=== PATIENT | female | born 1990 | race Caucasian/White ===

== ENCOUNTER 2017-12-03 22:45 | Emergency (ER) | payer OTHER ==
[2017-12-03] MEDS ORDERED: NS 0.9% 1000 ML* 1,000 ML IV ONE (22:55)
[2017-12-03] MEDS ORDERED: Ondansetron ODT TAB* 4 MG PO ONE (22:55)
[2017-12-03] MEDS ORDERED: Ondansetron INJ* 2 MG/ML VIAL ONE (22:58)
[2017-12-03 23:10] LABS: Hematocrit 34 % (35-47); Hemoglobin 11.4 g/dl (12.0-16.0); Mean Corpuscular HGB Conc 34 g/dl (31-36); Mean Corpuscular Hemoglobin 30 pg (27-31); Mean Corpuscular Volume 91 fL (80-97); Mean Platelet Volume 10.1 um3 (7.4-10.4); Platelet Count 157 10^3/ul (150-450); Red Blood Count 3.75 10^6/ul (4.00-5.40); Red Cell Distribution Width 12 % (10.5-15); White Blood Count 9.7 10^3/ul (3.5-10.8)
[2017-12-03] MEDS ORDERED: Ondansetron INJ* 2 MG/ML VIAL IV ONE (23:27)
[2017-12-03 23:28] LABS: EGFR Non-African American 98.7 (>60)
[2017-12-03 23:36] LABS: ABS Basophils 0.1 10^3/ul (0-0.2); ABS Neutrophils 2.5 10^3/ul (1.5-7.7); ABS Neutrophils 3.1 10^3/ul (1.5-7.7); Monocytes % 3 % (0-7)
[2017-12-04] MEDS ORDERED: Potassium Chlor TAB* 20 MEQ TAB.ER PO ONE (00:03)
[2017-12-04] MEDS ORDERED: NS 0.9% 1000 ML* 1,000 ML IV ONE (00:03)
[2017-12-04 01:17] LABS: Urine Red Blood Cell Trace(0-2/hpf) (Absent); Urine White Blood Cell Trace(0-5/hpf) (Absent)
--- NOTE | 2017-12-04 01:19 | ED ---
Syncope/Near Syncope - HPI Summary HPI Summary: Complains of sudden onset lightheadedness, N/V, weakness, 2 hours, with syncopal episode 45 minutes ago, lasting around 1 minute. Syncopal episode was observed, patient was helped to the floor, denies injury from fall. Patient alert and oriented here in the ED. Patient was [place] , drinking beer. Denies fever, cough, sore throat, CP, SOB, abdominal pain, change in urine, change in BM, vaginal symptoms. Medical history is none. States two prior episodes of syncope in her life from low blood sugar. - History Of Current Complaint Chief Complaint: EDSyncope Time Seen by Provider: 12/03/17 22:53 Hx Obtained From: Patient, Family/Bacon Slicer Onset/Duration: Sudden Onset Timing: Seconds Context: Witnessed Associated Head Trauma: No Aggravating Factor(s): Position Change Alleviating Factor(s): Nothing Associated Signs And Symptoms: Dizzy, Lightheadedness, Vomiting, Weakness - Risk Factors Cardiac Risk Factors: Negative Dysrhythmia Risk Factors: Negative Risk Factor(s): Negative - Allergies/Home Medications Allergies/Adverse Reactions: Allergies Allergy/AdvReac Type Severity Reaction Status Date / Time No Known Allergies Allergy Verified 12/04/17 01:55 PMH/Surg Hx/FS Hx/Imm Hx Endocrine/Hematology History: Denies: Hx Anticoagulant Therapy Cardiovascular History: Denies: Hx Cardiac Arrest History: Denies: Hx Dialysis Neurological History: Denies: Hx CVA - Immunization History Immunizations Up to Date: Yes Infectious Disease History: No Infectious Disease History: Denies: Traveled Outside the [place] in Last 30 Days - Social History Alcohol Use: Occasionally Substance Use Type: Reports: Marijuana Smoking Status (MU): Never Smoked Tobacco Review of Systems Constitutional: Negative Eyes: Negative ENT: Negative Cardiovascular: Negative Respiratory: Negative Positive: Vomiting, Nausea Genitourinary: Negative Musculoskeletal: Negative Skin: Negative Positive: Headache, Weakness, Syncope Psychological: Normal All Other Systems Reviewed And Are Negative: Yes Physical Exam Triage Information Reviewed: Yes Vital Signs On Initial Exam: Initial Vitals Temp Pulse Resp BP Pulse Ox 97.9 F 84 13 105/61 99 12/03/17 22:46 12/03/17 22:46 12/03/17 22:46 12/03/17 22:46 12/03/17 22:46 Vital Signs Reviewed: Yes Appearance: Positive: Well-Appearing Skin: Positive: Warm Head/Face: Positive: Normal Head/Face Inspection Eyes: Positive: Normal Neck: Positive: Supple Respiratory/Lung Sounds: Positive: Clear to Auscultation Cardiovascular: Positive: Normal Abdomen Description: Positive: Nontender Musculoskeletal: Positive: Normal Neurological: Positive: Normal Psychiatric: Positive: Normal AVPU Assessment: Alert - [place] Coma Scale Best Eye Response: 4 - Spontaneous Best Motor Response: 6 - Obeys Commands Best Verbal Response: 5 - Oriented Coma Scale Total: 15 Diagnostics - Vital Signs Vital Signs Temp Pulse Resp BP Pulse Ox 12/03/17 22:46 97.9 F 84 13 105/61 99 - Laboratory Lab Results: Lab Results 12/03/17 12/03/17 Range/Units 23:00 23:00 WBC 9.7 (3.5-10.8) 10^3/ul RBC 3.75 L (4.00-5.40) 10^6/ul Hgb 11.4 L (12.0-16.0) g/dl Hct 34 L (35-47) % MCV 91 (80-97) fL MCH 30 (27-31) pg MCHC 34 (31-36) g/dl RDW 12 (10.5-15) % Plt Count 157 (150-450) 10^3/ul MPV 10.1 (7.4-10.4) um3 Neut % (Auto) Not Reportable Lymph % (Auto) Not Reportable [place] % (Auto) Not Reportable Eos % (Auto) Not Reportable Baso % (Auto) Not Reportable Absolute Neuts (auto) 3.1 (1.5-7.7) 10^3/ul Absolute Lymphs (auto) Not Reportable Absolute Monos (auto) Not Reportable Absolute Eos (auto) Not Reportable Absolute Basos (auto) Not Reportable Absolute Nucleated RBC Not Reportable Immature Gran % 2 (0-9) % Neutrophils % 26 L (38-83) % Band Neutrophils % 2 (0-8) % Lymphocytes % 55 H (25-47) % Reactive Lymphs % 12 H (0-6) % Monocytes % 3 (0-7) % Eosinophils % 1 (0-6) % Basophils % 1 (0-2) % Nucleated RBC % Not Reportable Abs Neuts (Manual) 2.5 (1.5-7.7) 10^3/ul Abs Lymphs (Manual) 5.3 H (1.0-4.8) 10^3/ul Abs Monocytes (Manual) 0.3 (0-0.8) 10^3/ul Absolute Eos (Manual) 0.1 (0-0.6) 10^3/ul Abs Basophils (Manual) 0.1 (0-0.2) 10^3/ul Normal RBC Morphology Normal (Normal) Sodium 140 (135-145) mmol/L Potassium 3.0 L (3.5-5.0) mmol/L Chloride 107 (101-111) mmol/L Carbon Dioxide 24 (22-32) mmol/L Anion Gap 9 (2-11) mmol/L BUN 13 (6-24) mg/dL Creatinine 0.71 (0.51-0.95) mg/dL Est GFR ( Amer) 119.5 (>60) Est GFR (Non-Af Amer) 98.7 (>60) BUN/Creatinine Ratio 18.3 (8-20) Glucose 135 H (70-100) mg/dL Calcium 8.6 (8.6-10.3) mg/dL Total Bilirubin 0.40 (0.2-1.0) mg/dL AST 13 (13-39) U/L ALT 8 (7-52) U/L Alkaline Phosphatase 44 (34-104) U/L C-Reactive Protein < 1.00 (<8.01) mg/L Total Protein 6.2 L (6.4-8.9) g/dL Albumin 3.9 (3.2-5.2) g/dL Globulin 2.3 (2-4) g/dL Albumin/Globulin Ratio 1.7 (1-3) Lipase 15 (11.0-82.0) U/L Beta HCG, Quant < 0.60 mIU/mL Result Diagrams: 12/03/17 23:00 12/03/17 23:00 Lab Statement: Any lab studies that have been ordered have been reviewed, and results considered in the medical decision making process. - EKG 1 Cardiac Rate: NL EKG Rhythm: Sinus Rhythm ST Segment: Normal Ectopy: None Course/Dx Course Of Treatment: Complains of sudden onset lightheadedness, N/V, weakness, 2 hours, with syncopal episode 45 minutes ago, lasting around 1 minute. Syncopal episode was observed, patient was helped to the floor, denies injury from fall. Patient alert and oriented here in the ED. Patient was [place], drinking beer. Denies fever, cough, sore throat, CP, SOB, abdominal pain, change in urine, change in BM, vaginal symptoms. Medical history is none. States two prior episodes of syncope in her life from low blood sugar. Labs unremarkable. EKG unremarkable. Patient states significant improvement with 2 L of normal saline, almost at baseline. Patient out on a boat all day, drinking beer. Likely dehydration and some degree of heat exhaustion - Diagnoses Provider Diagnoses: Heat exhaustion, water deprivation, Syncope Discharge - Sign-Out/Discharge Documenting (check all that apply): Patient Departure - Discharge Plan Condition: Stable Disposition: HOME Patient Education Materials: Heat Exhaustion (ED), Syncope (ED) Referrals: No Primary Care Phys,NOPCP [Primary Care Provider] - Additional Instructions: Drink plenty of fluids. Return to the ED for any new or worsening symptoms - Billing Disposition and Condition Condition: STABLE Disposition: Home
[2017-12-04 01:24] LABS: Urine Appearance Clear; Urine Blood Negative (Negative); Urine Color Yellow; Urine Ketones Negative (Negative); Urine Protein Negative (Negative); Urine Specific Gravity 1.013 (1.010-1.030); Urine Urobilinogen Negative (Negative)
[2017-12-04 01:55] VITALS: BP 95/46
== END 2017-12-04 01:53 | disposition home or self-care (01) ==
LOC: ED 22:45
DX: T67.5XXA Heat exhaustion, unspecified, initial encounter (principal); R55 Syncope and collapse; T73.1XXA Deprivation of water, initial encounter; R42 Dizziness and giddiness; R53.1 Weakness; R11.2 Nausea with vomiting, unspecified; X30.XXXA Exposure to excessive natural heat, initial encounter; Y92.9 Unspecified place or not applicable
CPT/HCPCS: 36415; 80053; 81003; 83690; 84702; 85025; 86140; 87086; 93005; 96374; 96375; 99284; A9270-GY; J2405